=== PATIENT | female | born 1945 | race Caucasian/White ===

== ENCOUNTER → 2016-06-19 | Outpatient (CLI) | payer MEDICARE, OTHER ==
[~2016-06-19] MED LIST: CALCIUM 600/VIT1 CAP PO; EPA FISH OIL1 SGL PO; FLONASE NASAL S16 GM NS; MIRAPEX 0.0.125 MG/T PO; MULTI VITAMINS1 TAB PO; NATURE'S BLE1000 MCG PO; NORCO 325 MG-51 TAB PO; OCUVITE ADULT 51 SGL PO
== END ==
LOC: MC.RAD 08:28
DX: C50.312 Malignant neoplasm of lower-inner quadrant of left female breast (principal)

== ENCOUNTER → 2016-07-15 | Outpatient (CLI) | payer MEDICARE, OTHER | LOC: COL.RAD 13:24 | DX: Z01.818 Encounter for other preprocedural examination (principal); C50.912 Malignant neoplasm of unspecified site of left female breast | CPT/HCPCS: A9541 ==

== ENCOUNTER 2016-07-16 06:54 | Day surgery (SDC) | payer MEDICARE, OTHER ==
[~2016-07-16] VITALS: Ht 162.6 cm; Wt 68.3 kg
[2016-07-16 09:12] VITALS: BP 150/77; PULSE 60; TEMP 97.8
[2016-07-16] MEDS ORDERED: OCUVITE ADULT 51 SGL PO (09:18)
[2016-07-16] MEDS ORDERED: EPA FISH OIL1 SGL PO (09:19)
[2016-07-16] MEDS ORDERED: MULTI VITAMINS1 TAB PO (09:19)
[2016-07-16] MEDS ORDERED: NATURE'S BLE1000 MCG PO (09:20)
[2016-07-16] MEDS ORDERED: MIRAPEX 0.0.125 MG/T PO (09:21)
[2016-07-16] MEDS ORDERED: CALCIUM 600/VIT1 CAP PO (09:21)
[2016-07-16] MEDS ORDERED: FLONASE NASAL S16 GM NS (09:22)
[2016-07-16] MEDS ORDERED: NORCO 325 MG-51 TAB PO (12:12)
[2016-07-16 13:45] VITALS: BP 131/71; PULSE 72
[2016-07-16 13:46] VITALS: BP 134/79; PULSE 80; TEMP 97.2
== END 2016-07-16 14:17 | disposition home or self-care (01) ==
LOC: SDCO 06:54
DX: C50.312 Malignant neoplasm of lower-inner quadrant of left female breast (principal); Z17.0 Estrogen receptor positive status [ER+]; G25.81 Restless legs syndrome; D50.9 Iron deficiency anemia, unspecified; M85.80 Other specified disorders of bone density and structure, unspecified site; Z80.49 Family history of malignant neoplasm of other genital organs
CPT/HCPCS: J0690; J1100; J1170; J2270; J2405; J2704; J7120

== ENCOUNTER 2016-07-23 05:57 | Day surgery (SDC) | payer MEDICARE, OTHER ==
[~2016-07-23] VITALS: Ht 162.6 cm; Wt 69.0 kg
[2016-07-23 06:50] VITALS: BP 142/76; PULSE 61; TEMP 97.6
[2016-07-23 09:30] VITALS: BP 127/67; PULSE 60; TEMP 97.8
[2016-07-23 09:45] VITALS: BP 148/78; PULSE 58
== END 2016-07-23 10:08 | disposition home or self-care (01) ==
LOC: SDCO 05:57
DX: C50.312 Malignant neoplasm of lower-inner quadrant of left female breast (principal); N60.12 Diffuse cystic mastopathy of left breast; M85.80 Other specified disorders of bone density and structure, unspecified site; D50.9 Iron deficiency anemia, unspecified; G25.81 Restless legs syndrome; Z17.0 Estrogen receptor positive status [ER+]
CPT/HCPCS: J2250; J2405; J2704; J3010; J7120

== ENCOUNTER → 2017-06-10 | Outpatient (CLI) | payer MEDICARE, OTHER | LOC: MC.RAD 12:50 | DX: I10 Essential (primary) hypertension (principal); Z85.3 Personal history of malignant neoplasm of breast; Z92.3 Personal history of irradiation; Z90.12 Acquired absence of left breast and nipple; Z98.82 Breast implant status ==

== ENCOUNTER → 2018-07-02 | Outpatient (CLI) | payer MEDICARE, OTHER | LOC: MC.RAD 08:44 | DX: Z12.31 Encounter for screening mammogram for malignant neoplasm of breast (principal); Z98.82 Breast implant status; Z98.890 Other specified postprocedural states ==

== ENCOUNTER 2019-07-15 09:43 | Day surgery (SDC) | payer MEDICARE, OTHER ==
[~2019-07-15] VITALS: Ht 162.6 cm; Wt 61.0 kg
[2019-07-15 10:16] VITALS: BP 134/76; PULSE 67; TEMP 97.9
[2019-07-15] MEDS ORDERED: FOLIC ACID 40400 MCG PO (10:31)
[2019-07-15] MEDS ORDERED: HAIRSKINNAILS PO (10:31)
[2019-07-15] MEDS ORDERED: TIMOLOL MALEATE5 M3 OP (10:32)
[2019-07-15] MEDS ORDERED: ICAPS TABLET1 EACH PO (10:34)
[2019-07-15] MEDS ORDERED: CALTRATE-600 W600 MG PO (10:35)
[2019-07-15] MEDS ORDERED: ARIMIDEX1 MG PO (10:36)
[2019-07-15] MEDS ORDERED: FLONASEALLERGY NS (10:37)
[2019-07-15] MEDS ORDERED: FOSAMAX 70MG TA70 MG PO (10:38)
[2019-07-15 12:20] VITALS: BP 103/74; PULSE 77; TEMP 97.2
--- NOTE | 2019-07-15 12:20 | NUR ---
Patient arrives to [facility] via cart, accompanied by Endo RN Myranda. Patient is sitting up in bed, drowsy, but oriented. She ambulates with standby assist to the chair in the room. Monitoring is applied- VSS and WNL on room air. She denies any pain or nausea. Bedside report is received. Patient is offered and receives juice to drink. Her spouse is at the bedside. Call light in reach.
[2019-07-15 12:35] VITALS: BP 121/76; PULSE 73
--- NOTE | 2019-07-15 12:35 | NUR ---
Patient is resting comfortably in room. She denies pain or nausea. Requests and receives applesauce to eat. Tolerating PO well. VSS and WNL on room air.
[2019-07-15 12:50] VITALS: BP 121/88; PULSE 54
--- NOTE | 2019-07-15 12:50 | NUR ---
Patient has met discharge criteria. Discharge instructions are discussed. She denies any questions and verbalizes understanding. PIV removed with catheter intact and hemostasis achieved.
--- NOTE | 2019-07-15 13:05 | NUR ---
Patient is escorted to the exit via wheelchair by staff. Discharged to home with ride in private vehicle at 1305.
== END 2019-07-15 13:05 | disposition home or self-care (01) ==
LOC: SDCO 09:43
DX: Z12.11 Encounter for screening for malignant neoplasm of colon (principal); D12.3 Benign neoplasm of transverse colon; D12.5 Benign neoplasm of sigmoid colon; K57.30 Diverticulosis of large intestine without perforation or abscess without bleeding; M81.0 Age-related osteoporosis without current pathological fracture; D50.9 Iron deficiency anemia, unspecified; G25.81 Restless legs syndrome; M19.042 Primary osteoarthritis, left hand; M19.041 Primary osteoarthritis, right hand; J44.9 Chronic obstructive pulmonary disease, unspecified; Z86.010 Personal history of colon polyps; Z90.12 Acquired absence of left breast and nipple; Z79.899 Other long term (current) drug therapy; Z85.3 Personal history of malignant neoplasm of breast; Z88.2 Allergy status to sulfonamides; Z88.1 Allergy status to other antibiotic agents
CPT/HCPCS: J2704; J7030

== ENCOUNTER → 2019-07-16 | Outpatient (CLI) | payer MEDICARE, OTHER ==
[~2019-07-16] MED LIST changes: +ARIMIDEX1 MG PO; +CALTRATE-600 W600 MG PO; +FLONASEALLERGY NS; +FOLIC ACID 40400 MCG PO; +FOSAMAX 70MG TA70 MG PO; +HAIRSKINNAILS PO; +ICAPS TABLET1 EACH PO; +TIMOLOL MALEATE5 M3 OP
== END ==
LOC: MC.RAD 07:28
DX: Z12.31 Encounter for screening mammogram for malignant neoplasm of breast (principal); Z98.890 Other specified postprocedural states

== ENCOUNTER → 2020-07-17 | Outpatient (CLI) | payer MEDICARE | LOC: MC.RAD 08:53 | DX: Z12.31 Encounter for screening mammogram for malignant neoplasm of breast (principal); Z98.890 Other specified postprocedural states; Z98.82 Breast implant status; Z85.3 Personal history of malignant neoplasm of breast ==

== ENCOUNTER → 2021-07-24 | Outpatient (CLI) | payer MEDICARE | LOC: MC.RAD 09:31 | DX: Z12.31 Encounter for screening mammogram for malignant neoplasm of breast (principal); Z85.3 Personal history of malignant neoplasm of breast ==

== ENCOUNTER → 2022-07-26 | Outpatient (CLI) | payer MEDICARE | LOC: MC.RAD 13:33 | DX: Z12.31 Encounter for screening mammogram for malignant neoplasm of breast (principal) ==